=== PATIENT | female | born 2000 | race Two or more races ===

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

== ENCOUNTER 2024-10-03 14:10 | Inpatient (IN) | payer OTHER ==
[2024-10-03] MEDS: ELECTROLYTE-148 SOLN 1,000 ML IV SCH (14:15)
[2024-10-03] MEDS ORDERED: AMPICILLIN SODIUM 2 GM VIAL ONE (14:53)
[2024-10-03] MEDS: AMPICILLIN - 2 GM in SODIUM CHLORIDE 100 ML IVPB ONE (14:55)
[2024-10-03] MEDS ORDERED: AZITHROMYCIN IVPB 500 MG/250 ML BAG IVPB ONE (15:04)
[2024-10-03] MEDS: AZITHROMYCIN 500 MG/250 ML IVPB ONE (15:30)
[2024-10-03] MEDS: [UNRECOGNIZED DRUG - OTHER] IVPB ONE (15:30)
[2024-10-03 15:48] VITALS: BMI 39.2
[2024-10-03] MEDS ORDERED: OXYTOCIN 20 UNITS in 0.9% NS 20 UNIT/1,000 ML INFUS.BAG IV ONE (15:52)
[2024-10-03 16:40] LABS: HEMATOCRIT 36.3 % (34.1-44.9); MCHC 33.1 g/dl (32.2-35.5); MEAN CELL VOLUME 91.4 fl (79.4-94.8); MEAN PLT VOLUME 13.2 fl (9.4-12.3); PLATELET COUNT 162 x10^3/uL (182-369); RDW 13.2 % (12.1-16.5)
[2024-10-03 16:54] LABS: URINE AMPHETAMINES NEGATIVE (NEGATIVE); URINE BARBITURATES NEGATIVE (NEGATIVE)
[2024-10-03 16:55] LABS: METHADONE, UR NEGATIVE (NEGATIVE); PHENCYCLIDINE,URINE NEGATIVE (NEGATIVE); URINE BENZODIAZEPINES NEGATIVE (NEGATIVE)
[2024-10-03 16:56] LABS: COCAINE, UR NEGATIVE (NEGATIVE); OPIATES, URI NEGATIVE (NEGATIVE)
[2024-10-03 16:59] LABS: INR 0.96 (0.83-1.09); PROTHROMBIN TIME (PATIENT) 10.5 SEC (9.7-13.0)
[2024-10-03 17:01] LABS: POTASSIUM 3.8 mmol/L (3.5-5.1)
[2024-10-03 17:02] LABS: BLOOD UREA NITROGEN 7.3 mg/dL (7-18); CALCIUM 9.3 mg/dL (8.5-10.1)
[2024-10-03 17:02] LABS: ACTIVATED PTT 29.2 SECONDS (25.2-36.5)
[2024-10-03 17:06] LABS: CREATININE 0.4 mg/dL (0.55-1.3)
[2024-10-03] MEDS: OXYTOCIN 30 UNITS in 0.9% NS 30 UNIT/500 ML INFUS.BAG IVPB SCH (17:45)
[2024-10-03 17:57] LABS: HIV INTERPRETATION NEGATIVE (NEGATIVE)
[2024-10-03] MEDS: METHYLERGONOVINE MALEATE 0.2 MG/1 ML AMP IM PRN (18:20)
[2024-10-03] MEDS: OXYTOCIN 20 UNITS in 0.9% NS 20 UNIT/1,000 ML INFUS.BAG IV SCH (18:40)
[2024-10-03] MEDS ORDERED: BENZOCAINE 20% 57 GM BOTTLE TP PRN (18:46)
[2024-10-03] MEDS ORDERED: WITCH HAZEL 50% (TUCKS) 40 PAD/JAR PAD TP PRN (18:46)
[2024-10-03] MEDS ORDERED: oxyCODONE HCL 5 MG TABLET PO PRN (18:46)
[2024-10-03] MEDS ORDERED: BENZOCAINE 28 GM HEMORRHOIDAL OINTMENT TP PRN (18:46)
[2024-10-03] MEDS ORDERED: BISACODYL 10 MG SUPP.RECT RC PRN (18:46)
[2024-10-03] MEDS ORDERED: ACETAMINOPHEN 325 MG TABLET (FP) ONE (19:48)
[2024-10-03] MEDS: ACETAMINOPHEN 325 MG TABLET (FP) PO PRN (19:50)
[2024-10-04 08:02] LABS: ABSOLUTE IMMATURE GRANULOCYTES 0.08 x10^3/uL (0.0-0.031); BASOPHILS # 0.03 x10^3/uL (0.01-0.08); EOSINOPHIL % 0.4 % (0.7-5.8); EOSINOPHILS # 0.04 x10^3/uL (0.04-0.36); HEMATOCRIT 30.2 % (34.1-44.9); HEMOGLOBIN 9.8 g/dL (11.2-15.7); MCHC 32.5 g/dl (32.2-35.5); MEAN CELL VOLUME 92.6 fl (79.4-94.8); MEAN PLT VOLUME 12.6 fl (9.4-12.3); MONOCYTE # 0.49 x10^3/uL (0.24-0.86); MONOCYTE % 4.8 % (4.7-12.5); PLATELET COUNT 157 x10^3/uL (182-369); RDW 13.5 % (12.1-16.5)
[2024-10-04] MEDS: AZITHROMYCIN IVPB 500 MG/250 ML BAG IVPB SCH (11:33)
[2024-10-05 12:43] LABS: POC NITRAZINE POS
[2024-10-05] MEDS: IBUPROFEN 600 MG TABLET (FP) PO PRN (14:23)
[2024-10-06 11:07] VITALS: BP 116/71; PULSE 102; RESP 17; TEMP 98.4
== END 2024-10-06 19:04 | disposition home or self-care (01) | DRG 560 ==
LOC: JDEL 14:10 → JLDR 14:50 → J3W 20:34
PROVIDERS: ADMIT Specialist; ATTEND Specialist
PROC: 0HQ9XZZ Repair Perineum Skin, External Approach (ICD-10-PCS; principal; 2024-10-03)
PROC: 10E0XZZ Delivery of Products of Conception, External Approach (ICD-10-PCS; 2024-10-03)
DX: O42.913 Preterm premature rupture of membranes, unspecified as to length of time between rupture and onset of labor, third trimester (principal); O60.23X0 Term delivery with preterm labor, third trimester, not applicable or unspecified; O69.1XX0 Labor and delivery complicated by cord around neck, with compression, not applicable or unspecified; O70.0 First degree perineal laceration during delivery; Z3A.34 34 weeks gestation of pregnancy; Z37.0 Single live birth
CPT/HCPCS: 36415; 59409; 80048; 80307; 83986-QW; 85025; 85610; 85730; 86780; 86850; 86900; 86901; 87389

== ENCOUNTER 2024-10-20 19:35 | Emergency (ER) | payer OTHER ==
[2024-10-20 19:39] VITALS: TEMP 99; BMI 34.9
[2024-10-20] MEDS ORDERED: ACETAMINOPHEN 325 MG TABLET (FP) ONE (20:14)
[2024-10-20] MEDS: ACETAMINOPHEN 500 MG TABLET (FP) PO ONE (20:18)
[2024-10-20 20:50] LABS: ABSOLUTE IMMATURE GRANULOCYTES 0.06 x10^3/uL (0.0-0.031); BASOPHILS # 0.05 x10^3/uL (0.01-0.08); EOSINOPHIL % 0.4 % (0.7-5.8); EOSINOPHILS # 0.05 x10^3/uL (0.04-0.36); HEMOGLOBIN 8.8 g/dL (11.2-15.7); MCHC 31.4 g/dl (32.2-35.5); MEAN PLT VOLUME 11.8 fl (9.4-12.3); MONOCYTE # 0.28 x10^3/uL (0.24-0.86); MONOCYTE % 2.5 % (4.7-12.5); PLATELET COUNT 285 x10^3/uL (182-369); RDW 13.1 % (12.1-16.5)
[2024-10-20 20:58] LABS: INR 1.02 (0.83-1.09); PROTHROMBIN TIME (PATIENT) 11.2 SEC (9.7-13.0)
[2024-10-20 21:00] LABS: ACTIVATED PTT 29.6 SECONDS (25.2-36.5)
[2024-10-20 21:16] LABS: POTASSIUM 4.2 mmol/L (3.5-5.1)
[2024-10-20 21:19] LABS: ALBUMIN 3.1 g/dl (3.4-5.0); BLOOD UREA NITROGEN 12.9 mg/dL (7-18)
[2024-10-20 21:22] LABS: CREATININE 0.9 mg/dL (0.55-1.3)
[2024-10-20 21:24] LABS: BILIRUBIN,TOTAL 0.2 mg/dL (0.2-1); TOT PROT 5.8 g/dl (6.4-8.2)
[2024-10-20] MEDS: SODIUM CHLORIDE 0.9% 500 ML INFUS.BAG IV ONE (22:23)
[2024-10-20 22:30] VITALS: BP 117/71; PULSE 80; RESP 12
[2024-10-20 23:42] LABS: HEMATOCRIT 25.8 % (34.1-44.9); HEMOGLOBIN 8.2 g/dL (11.2-15.7); MCHC 31.8 g/dl (32.2-35.5); MEAN CELL VOLUME 91.5 fl (79.4-94.8); MEAN PLT VOLUME 11.2 fl (9.4-12.3); PLATELET COUNT 246 x10^3/uL (182-369); RDW 12.9 % (12.1-16.5)
[2024-10-21] MEDS: METHYLERGONOVINE MALEATE 0.2 MG/1 ML AMP IM ONE (00:23)
== END 2024-10-21 01:32 | disposition home or self-care (01) ==
LOC: JER 19:35
PROC: 3E023GC Introduction of Other Therapeutic Substance into Muscle, Percutaneous Approach (ICD-10-PCS; principal; 2024-10-20)
DX: O03.4 Incomplete spontaneous abortion without complication (principal); O99.43 Diseases of the circulatory system complicating the puerperium; R94.31 Abnormal electrocardiogram [ECG] [EKG]
CPT/HCPCS: 36415; 76830-TC; 80053; 85025; 85027; 85610; 85730; 86850; 86900; 86901; 93005; 93010; 96372; 99285-25

== ENCOUNTER 2024-11-04 22:33 | Emergency (ER) | payer OTHER ==
[2024-11-04 22:41] VITALS: RESP 20; BMI 37.3
[2024-11-04 23:14] LABS: ABSOLUTE IMMATURE GRANULOCYTES 0.02 x10^3/uL (0.0-0.031); BASOPHILS # 0.02 x10^3/uL (0.01-0.08); EOSINOPHIL % 3.2 % (0.7-5.8); EOSINOPHILS # 0.21 x10^3/uL (0.04-0.36); HEMATOCRIT 22.4 % (34.1-44.9); HEMOGLOBIN 6.9 g/dL (11.2-15.7); MCHC 30.8 g/dl (32.2-35.5); MEAN PLT VOLUME 10.6 fl (9.4-12.3); MONOCYTE # 0.33 x10^3/uL (0.24-0.86); PLATELET COUNT 288 x10^3/uL (182-369)
[2024-11-04 23:22] LABS: INR 0.97 (0.83-1.09); PROTHROMBIN TIME (PATIENT) 10.6 SEC (9.7-13.0)
[2024-11-05 00:06] LABS: ALBUMIN 3.5 g/dl (3.4-5.0); BILIRUBIN,TOTAL 0.2 mg/dL (0.2-1); BLOOD UREA NITROGEN 11.8 mg/dL (7-18); CREATININE 0.7 mg/dL (0.55-1.3); TOT PROT 6.5 g/dl (6.4-8.2)
[2024-11-05 01:39] LABS: EPI CELLS 6 /uL (0-25.1); HYALINE CASTS 0 /uL (0-3.1); URINE APPEARANCE CLEAR; URINE BACTERIA 256 /uL (0-1359); URINE BILIRUBIN NEGATIVE (NEGATIVE); URINE COLOR YELLOW; URINE GLUCOSE (UA) NEGATIVE (NEGATIVE); URINE KETONE TRACE (NEGATIVE); URINE LEUK ESTERASE 2+ (NEGATIVE); URINE NITRITE NEGATIVE (NEGATIVE); URINE PROTEIN NEGATIVE (NEGATIVE); URINE RBC 12 /uL (0-23.9); URINE UROBILINOGEN 0.2 mg/dL (0.2-1.0); URINE WBC 174 /uL (0-25.8)
[2024-11-05] MEDS ORDERED: NITROFURANTOIN MACROCRYSTAL 50 MG CAPSULE (FP) ONE (02:34)
[2024-11-05] MEDS: NITROFURANTOIN MONOHYD/M-CRYST 100 MG CAPSULE PO ONE (02:45)
[2024-11-05 03:33] VITALS: BP 99/60; PULSE 76; TEMP 99.1
== END 2024-11-05 03:38 | disposition home or self-care (01) ==
LOC: JER 22:33
DX: O90.81 Anemia of the puerperium (principal); O99.893 Other specified diseases and conditions complicating puerperium; R42 Dizziness and giddiness
CPT/HCPCS: 36415; 36430; 80053; 81003; 84703; 85025; 85610; 86850; 86900; 86901; 86922; 87086; 99283-25; P9058